=== PATIENT | male | born 1980 | race Caucasian/White ===

== ENCOUNTER 2016-12-03 14:05 | Emergency (ER) | payer SELFPAY ==
[2016-12-03 14:06] VITALS: BP 142/93; PULSE 98; RESP 20; TEMP 97.8; O2SAT 97
[2016-12-03 16:22] VITALS: BP 131/86; PULSE 95; RESP 18; O2SAT 100
[2016-12-03] MEDS ORDERED: LORazepam 2 MG/ML VIAL IV PUSH ONE ×2 (17:00→19:15)
[2016-12-03 17:17] LABS: AUTOMATED NEUTROPHIL # 2.4 TH/MM3 (1.8-7.7); BASOPHIL % 0.7 % (0.0-2.0); HEMATOCRIT 35.3 % (39.0-51.0); LYMPH % 31.5 % (9.0-44.0); LYMPHOCYTE # 1.5 TH/MM3 (1.0-4.8); MEAN CELL VOLUME 97.7 FL (80.0-100.0); MEAN CORPUSCULAR HEMOGLOBIN 33.4 PG (27.0-34.0); MEAN CORPUSCULAR HGB CONC 34.3 % (32.0-36.0); MONO % 17.6 % (0.0-8.0); NEUT % 49.2 % (16.0-70.0); RED BLOOD COUNT 3.61 MIL/MM3 (4.50-5.90); RED CELL DISTRIBUTION WIDTH 13.7 % (11.6-17.2); WHITE BLOOD COUNT 4.8 TH/MM3 (4.0-11.0)
--- NOTE | 2016-12-03 17:17 | PD ---
HPI Chief Complaint: Psychiatric Symptoms Time Seen by Provider: 17:13 Travel History International Travel<30 days: No Contact w/Intl Traveler<30days: No Traveled to known affect area: No History of Present Illness HPI 36-year-old male that presents to the ED for evaluation of anxiety and insomnia. Per patient he has a history of insomnia but takes no medications for it. Per patient he was seen yesterday at [facility] for evaluation of this and had some blood work and was given fluids and some medications as well as a perception for Vistaril which she did not fill. Per patient he slept for for about 4 hours last night and decided to come here because he still feels anxious. On exam patient is very paranoid. Very jumpy and questions everything that I do or the nurse does. He himself denies any history of anxiety or depression in the past. He denies any history of schizophrenia. He denies taking any medications for this. Per patient he did not get the prescription filled. Patient claims that "they are after me". Unclear as to what he means by this. He seems to be again very paranoid and anxious. History is somewhat limited because of this. He denies any drug abuse but does state that he used to drink a lot but cannot really quantify. Per patient he has not had any drinks for about 3 days now. He has no allergies to medication. He denies taking any medications at the bases. No other medical problems. PFSH Past Medical History Medical History: Denies Significant Hx Immunizations Current: Yes Tetanus Vaccination: > 5 Years Influenza Vaccination: No Past Surgical History Surgical History: No Previous Surgery Social History Alcohol Use: Yes Tobacco Use: Yes Substance Use: Yes (marijuana) Allergies-Medications (Allergen,Severity, Reaction): Coded Allergies: No Known Allergies (Unverified , 12/03/16) Review of Systems ROS Limitations: Psychotic General / Constitutional: No: Fever, Chills, Weight Gain, Weight Loss, Other Eyes: No: Diploplia, Blurred Vision, Photophobia, Drainage, Redness, Foreign Body Sensation, Pain, Tearing, Blind Spots, Visual changes, Blindness, Other HENT: No: Headaches, Vertigo, Lightheadedness, Sore Throat, Rhinitis, Rhinorrhea, Congestion, Nosebleed, Neck Stiffness, Neck Pain, Masses, Gingival Bleeding, Dental Difficulties, Ear Discharge, Earache, Other Cardiovascular: No: Chest Pain or Discomfort, Palpitations, Irregular Rhythm, Tachycardia, Diaphoresis, Syncope, Dyspnea on exertion, Varicosities, Edema, Cyanosis, Varicosities, Phlebitis, Claudication, Other Respiratory: No: Cough, Shortness of Breath, Wheezing, Sneezing, Orthopnea, Hemoptysis, Stridor, Night Sweats, Pleuritic Pain, Other Gastrointestinal: No: Nausea, Vomiting, Diarrhea, Abdominal Pain, Hematemesis, Hematochezia, Constipation, Changes in Bowel Habits, Indigestion, Dysphagia, Loss of Appetite, Other Genitourinary: No: Urgency, Frequency, Dysuria, Nocturia, Hematuria, Decreased Urinary Output, Oliguria, Hesitancy, Dribbling, Incontinence, Pelvic Pain, Flank Pain, Dyspareunia, Discharge, Dysmenorrhea, Menorrhagia, Metorrhagia, Vaginal Bleeding, Other Musculoskeletal: No: Myalgias, Arthralgias, Limited ROM, Weakness, Cramping, Edema, Pain, Atrophy, Other Skin: No Rash, No Itching, No Dryness, No Lumps, No Hives, No Change in Pigmentation, No Change in nails, No Alopecia, No Lesions, No Breast Lumps, No Breast Tenderness, No Breast Swelling, No Other Neurologic: No: Weakness, Dizziness, Syncope, Focal Abnormalities, Coordination Problem, Tremor, Ataxia, Headache, Change in Mentation, Slurred Speech, Paresthesia, Incontinence, Seizures, Sensory Disturbance, Other Psychiatric: Positive: Anxiety, Disorder of Thought, No: Depression, Suicidal Ideations, Mood Disorder, Substance Abuse, Homicidal Ideation, Other Endocrine: No: Heat Intolerance, Cold Intolerance, Polyuria, Polydipsia, Other Physical Exam Exam Limitations: Psychotic Narrative GENERAL: SKIN: Warm and dry. HEAD: Atraumatic. Normocephalic. EYES: Pupils equal and round 4 mm reactive to light and accommodation. No scleral icterus. No injection or drainage. ENT: No nasal bleeding or discharge. Mucous membranes pink and moist. NECK: Trachea midline. No JVD. CARDIOVASCULAR: Regular rate and rhythm. No murmurs, S3, S4. RESPIRATORY: No accessory muscle use. Clear to auscultation. Breath sounds equal bilaterally. GASTROINTESTINAL: Abdomen soft, non-tender, nondistended. Hepatic and splenic margins not palpable. MUSCULOSKELETAL: Extremities without clubbing, cyanosis, or edema. No obvious deformities. Full range of motion of the upper and lower extremities bilaterally. 2+ pulses bilaterally. NEUROLOGICAL: Awake and alert. No obvious cranial nerve deficits. Motor grossly within normal limits. Five out of 5 muscle strength in the arms and legs. Normal speech. PSYCHIATRIC: Anxious and paranoid mood and affect; insight and judgment normal. Data Data Last Documented VS Vital Signs Date Time Temp Pulse Resp B/P Pulse Ox O2 Delivery O2 Flow Rate FiO2 12/03/16 16:22 105 12/03/16 16:22 18 131/86 100 Room Air 12/03/16 14:06 97.8 Orders Complete Blood Count With Diff (12/03/16 16:34) Comprehensive Metabolic Panel (12/03/16 16:34) Psych Screen (12/03/16 16:34) Drug Screen, Random Urine (12/03/16 16:34) Alcohol (Ethanol) (12/03/16 16:34) Lorazepam Inj (Ativan Inj) (12/03/16 17:00) Labs Laboratory Tests Test 12/03/16 16:45 White Blood Count 4.8 TH/MM3 Red Blood Count 3.61 MIL/MM3 Hemoglobin 12.1 GM/DL Hematocrit 35.3 % Mean Corpuscular Volume 97.7 FL Mean Corpuscular Hemoglobin 33.4 PG Mean Corpuscular Hemoglobin 34.3 % Concent Red Cell Distribution Width 13.7 % Platelet Count 85 TH/MM3 Mean Platelet Volume 8.8 FL Neutrophils (%) (Auto) 49.2 % Lymphocytes (%) (Auto) 31.5 % Monocytes (%) (Auto) 17.6 % Eosinophils (%) (Auto) 1.0 % Basophils (%) (Auto) 0.7 % Neutrophils # (Auto) 2.4 TH/MM3 Lymphocytes # (Auto) 1.5 TH/MM3 Monocytes # (Auto) 0.8 TH/MM3 Eosinophils # (Auto) 0.0 TH/MM3 Basophils # (Auto) 0.0 TH/MM3 CBC Comment AUTO DIFF Differential Comment AUTO DIFF CONFIRMED Platelet Estimate NORMAL Platelet Morphology Comment NORMAL Sodium Level 140 MEQ/L Potassium Level 3.6 MEQ/L Chloride Level 106 MEQ/L Carbon Dioxide Level 24.0 MEQ/L Anion Gap 10 MEQ/L Blood Urea Nitrogen 8 MG/DL Creatinine 1.04 MG/DL Estimat Glomerular Filtration 81 ML/MIN Rate Random Glucose 154 MG/DL Calcium Level 8.2 MG/DL Total Bilirubin 1.1 MG/DL Aspartate Amino Transf 104 U/L (AST/SGOT) Alanine Aminotransferase 74 U/L (ALT/SGPT) Alkaline Phosphatase 75 U/L Total Protein 6.5 GM/DL Albumin 3.1 GM/DL Ethyl Alcohol Level LESS THAN 3 MG/DL MDM Medical Decision Making Medical Screen Exam Complete: Yes Emergency Medical Condition: Yes Medical Record Reviewed: Yes Interpretation(s) CBC & BMP Diagram 12/03/16 16:45 LFTs WNL Differential Diagnosis Depression versus suicidal ideation versus anxiety versus adjustment disorder versus mood disorder versus bipolar disorder versus schizophrenia versus paranoid disorder versus psychosis versus substance abuse versus alcohol abuse versus alcohol induced psychosis versus homicidality addition versus cutting versus personality disorder Narrative Course 36-year-old male that presents to the ED for evaluation of what appears to be paranoia and anxiety. Patient was properly examined and was found to have signs and symptoms consistent with appears to be psychiatric illness. No obvious sign of acute medical distress. Labs will be drawn. Patient will be medically clear. Okay to be seen by psych. Patient was given Ativan for his anxiety and his paranoia here. Mental health screening was discussed with the patient. Diagnosis Primary Impression: Anxiety Additional Impression: Paranoia Bubba Vidal Dec 03, 2016 17:17
[2016-12-03 17:18] LABS: HEMO FLAGS AUTO DIFF
[2016-12-03 17:28] LABS: ALKALINE PHOSPHATASE 75 U/L (45-117); ALT (GPT) 74 U/L (12-78); ANION GAP 10 MEQ/L (5-15); AST (GOT) 104 U/L (15-37); BLOOD UREA NITROGEN 8 MG/DL (7-18); CHLORIDE 106 MEQ/L (98-107); GLOMERULAR FILTRATION RATE 81 ML/MIN (>89); POTASSIUM 3.6 MEQ/L (3.5-5.1); SODIUM (NA) 140 MEQ/L (136-145); TOTAL BILIRUBIN ADULT 1.1 MG/DL (0.2-1.0)
[2016-12-03 17:57] LABS: PLATELET COUNT 85 TH/MM3 (150-450); PLATELET ESTIMATE SMEAR NORMAL (NORMAL); PLATELET MORPHOLOGY NORMAL (NORMAL); SCAN/DIFF AUTO DIFF CONFIRMED
[2016-12-03 18:28] LABS: AMPHETAMINE, URINE NEG (NEG); BARBITURATES, URINE NEG (NEG); COCAINE, URINE NEG (NEG)
[2016-12-03 18:37] VITALS: BP 127/84; PULSE 80; RESP 18; O2SAT 100
[2016-12-03] MEDS ORDERED: OLANZapine IM 10 MG VIAL IM ONE (21:00)
[2016-12-03 22:21] VITALS: BP 125/68; PULSE 119; RESP 18; O2SAT 97
[2016-12-03] MEDS ORDERED: LORazepam 2 MG TAB PO PRN (23:15)
[2016-12-03] MEDS ORDERED: FLUMAZENIL 0.5 MG/5 ML VIAL IV PUSH PRN (23:15)
[2016-12-03] MEDS ORDERED: LORazepam 2 MG/ML VIAL IV PUSH PRN ×4 (23:15)
--- NOTE | 2016-12-04 00:48 | RADRPT ---
EXAM DATE/TIME: 12/04/2016 00:20 [facility] COMPARISON: No previous studies available for comparison. INDICATIONS : Altered mental status. RADIATION DOSE: 41.41 CTDIvol (mGy) MEDICAL HISTORY : None SURGICAL HISTORY : None. ENCOUNTER: Initial ACUITY: 1 day PAIN SCALE: 0/10 LOCATION: cranial TECHNIQUE: Multiple contiguous axial images were obtained of the head. Using automated exposure control and adj ustment of the mA and/or kV according to patient size, radiation dose was kept as low as reasonably a chievable to obtain optimal diagnostic quality images. FINDINGS: CEREBRUM: The ventricles are normal for age. No evidence of midline shift, mass lesion, hemorrhage or acute in farction. No extra-axial fluid collections are seen. POSTERIOR FOSSA: The cerebellum and brainstem are intact. The 4th ventricle is midline. The cerebellopontine angle i s unremarkable. EXTRACRANIAL: The visualized portion of the orbits is intact. SKULL: The calvaria is intact. No evidence of skull fracture. CONCLUSION: No acute disease. Nate Ye MD on December 04, 2016 at 0:46 Board Certified Radiologist. This report was verified electronically.
--- NOTE | 2016-12-04 03:18 | PD ---
Physical Exam Narrative General: The patient is a well-developed well-nourished male, agitated, confused on examination, pointing at various objects around the room and clearly hallucinating. Head and Neck exam: Head is normocephalic atraumatic. Eyes: Pupils are equal round and reactive to light. Nose: Midline septum with pink mucous membranes Mouth: Dentition unremarkable. Moist mucus membranes. Posterior oropharynx is not erythematous. No tonsillar hypertrophy. Uvula midline. Airway patent. Neck: No palpable lymphadenopathy. No nuchal rigidity. No thyromegaly. Cardiovascular: Sinus tachycardia in the low 100 without murmurs, gallops, or rubs. No pulse deficit to the extremities and simultaneous auscultation and palpation of his radial artery. Lungs: Clear to auscultation bilaterally. No wheezes, rhonchi, or rales. Abdomen: Soft, without tenderness to palpation in all 4 quadrants of the abdomen. No guarding, rebound, or rigidity. Normal bowel sounds are audible. Extremities: No clubbing, cyanosis, or edema. 2+ pulses in all 4 extremities. No calf tenderness on palpation. Neurologic Exam: The patient has difficulty tracking the conversation, repeatedly discussing other things with tangential speech. The patient has pressured speech on examination. The patient repeatedly talks about watching television good movies. The patient has no evidence of facial asymmetry. The patient has strength that is 5 over 5 in all 4 extremities. The patient has been agitated and not sitting in bed in spite of being on the CiWA protocol and sedated with Ativan. The patient will therefore be placed in restraints for his and the staff's safety. Skin Exam: No rash noted. Intact skin that is warm and dry. Data Data Last Documented VS Vital Signs Date Time Temp Pulse Resp B/P Pulse Ox O2 Delivery O2 Flow Rate FiO2 12/03/16 22:21 119 18 125/68 97 Room Air 12/03/16 14:06 97.8 Orders Complete Blood Count With Diff (12/03/16 16:34) Comprehensive Metabolic Panel (12/03/16 16:34) Psych Screen (12/03/16 16:34) Drug Screen, Random Urine (12/03/16 16:34) Alcohol (Ethanol) (12/03/16 16:34) Lorazepam Inj (Ativan Inj) (12/03/16 17:00) Lorazepam Inj (Ativan Inj) (12/03/16 19:15) Olanzapine Inj (Zyprexa Inj) (12/03/16 21:00) Lorazepam (Ativan) (12/03/16 23:15) Lorazepam Inj (Ativan Inj) (12/03/16 23:15) Lorazepam (Ativan) (12/03/16 23:15) Lorazepam Inj (Ativan Inj) (12/03/16 23:15) Lorazepam Inj (Ativan Inj) (12/03/16 23:15) Lorazepam Inj (Ativan Inj) (12/03/16 23:15) Flumazenil Inj (Romazicon Inj) (12/03/16 23:15) Ammonia (12/03/16 23:56) Ct Brain W/O Iv Contrast(Rout) (12/03/16 23:56) Diet Regular Basic (12/04/16 Breakfast) Labs Laboratory Tests Test 12/03/16 12/03/16 12/04/16 16:45 17:45 00:10 White Blood Count 4.8 TH/MM3 Red Blood Count 3.61 MIL/MM3 Hemoglobin 12.1 GM/DL Hematocrit 35.3 % Mean Corpuscular Volume 97.7 FL Mean Corpuscular Hemoglobin 33.4 PG Mean Corpuscular Hemoglobin 34.3 % Concent Red Cell Distribution Width 13.7 % Platelet Count 85 TH/MM3 Mean Platelet Volume 8.8 FL Neutrophils (%) (Auto) 49.2 % Lymphocytes (%) (Auto) 31.5 % Monocytes (%) (Auto) 17.6 % Eosinophils (%) (Auto) 1.0 % Basophils (%) (Auto) 0.7 % Neutrophils # (Auto) 2.4 TH/MM3 Lymphocytes # (Auto) 1.5 TH/MM3 Monocytes # (Auto) 0.8 TH/MM3 Eosinophils # (Auto) 0.0 TH/MM3 Basophils # (Auto) 0.0 TH/MM3 CBC Comment AUTO DIFF Differential Comment AUTO DIFF CONFIRMED Platelet Estimate NORMAL Platelet Morphology Comment NORMAL Sodium Level 140 MEQ/L Potassium Level 3.6 MEQ/L Chloride Level 106 MEQ/L Carbon Dioxide Level 24.0 MEQ/L Anion Gap 10 MEQ/L Blood Urea Nitrogen 8 MG/DL Creatinine 1.04 MG/DL Estimat Glomerular Filtration 81 ML/MIN Rate Random Glucose 154 MG/DL Calcium Level 8.2 MG/DL Total Bilirubin 1.1 MG/DL Aspartate Amino Transf 104 U/L (AST/SGOT) Alanine Aminotransferase 74 U/L (ALT/SGPT) Alkaline Phosphatase 75 U/L Total Protein 6.5 GM/DL Albumin 3.1 GM/DL Ethyl Alcohol Level LESS THAN 3 MG/DL Urine Opiates Screen NEG Urine Barbiturates Screen NEG Urine Amphetamines Screen NEG Urine Benzodiazepines Screen NEG Urine Cocaine Screen NEG Urine Cannabinoids Screen NEG Ammonia 40 MCMOL/L [facility] Medical Record Reviewed: Yes Supervised Visit with SABI: No Interpretation(s) Laboratory Tests Test 12/03/16 12/03/16 12/04/16 16:45 17:45 00:10 White Blood Count 4.8 TH/MM3 Red Blood Count 3.61 MIL/MM3 Hemoglobin 12.1 GM/DL Hematocrit 35.3 % Mean Corpuscular Volume 97.7 FL Mean Corpuscular Hemoglobin 33.4 PG Mean Corpuscular Hemoglobin 34.3 % Concent Red Cell Distribution Width 13.7 % Platelet Count 85 TH/MM3 Mean Platelet Volume 8.8 FL Neutrophils (%) (Auto) 49.2 % Lymphocytes (%) (Auto) 31.5 % Monocytes (%) (Auto) 17.6 % Eosinophils (%) (Auto) 1.0 % Basophils (%) (Auto) 0.7 % Neutrophils # (Auto) 2.4 TH/MM3 Lymphocytes # (Auto) 1.5 TH/MM3 Monocytes # (Auto) 0.8 TH/MM3 Eosinophils # (Auto) 0.0 TH/MM3 Basophils # (Auto) 0.0 TH/MM3 CBC Comment AUTO DIFF Differential Comment AUTO DIFF CONFIRMED Platelet Estimate NORMAL Platelet Morphology Comment NORMAL Sodium Level 140 MEQ/L Potassium Level 3.6 MEQ/L Chloride Level 106 MEQ/L Carbon Dioxide Level 24.0 MEQ/L Anion Gap 10 MEQ/L Blood Urea Nitrogen 8 MG/DL Creatinine 1.04 MG/DL Estimat Glomerular Filtration 81 ML/MIN Rate Random Glucose 154 MG/DL Calcium Level 8.2 MG/DL Total Bilirubin 1.1 MG/DL Aspartate Amino Transf 104 U/L (AST/SGOT) Alanine Aminotransferase 74 U/L (ALT/SGPT) Alkaline Phosphatase 75 U/L Total Protein 6.5 GM/DL Albumin 3.1 GM/DL Ethyl Alcohol Level LESS THAN 3 MG/DL Urine Opiates Screen NEG Urine Barbiturates Screen NEG Urine Amphetamines Screen NEG Urine Benzodiazepines Screen NEG Urine Cocaine Screen NEG Urine Cannabinoids Screen NEG Ammonia 40 MCMOL/L Last Impressions Head CT 12/03/16 [id number] Signed Impressions: Service Date/Time: Sunday, December 04, 2016 00:20 - CONCLUSION: No acute disease. Nate Ye MD Differential Diagnosis Acute psychosis related to alcohol withdrawal, versus substance intoxication, versus psychiatric disorder, versus electrolyte abnormality, versus intracranial abnormality Narrative Course During the course of the patients emergency department visit, the patients history, examination, and differential diagnosis were reviewed with the patient. The patient was initially evaluated by Dr. Nguyen medically cleared. The patient was noted to have psychosis with paranoid delusions. A psychiatric evaluation has been done. The patients laboratory studies were reviewed and remarkable for a white count of 4.8, hemoglobin 12.1, platelets 85 monocytosis at 17.6., CMP is remarkable for glucose 154, AST 104, ammonia level is 40, urine drug screen is negative, alcohol level is less than 3 CT scan of the brain shows no acute abnormality. I suspect that the patient's symptoms are related to an alcohol withdrawal syndrome as according to the patient's mother the patient drinks alcohol on a daily basis.. The patient will be continued on CIWA and have a Evaluation by the psychiatrist in the morning to evaluate for other underlying psychiatric issues. Diagnosis Primary Impression: Anxiety Additional Impression: Paranoia Scripts No Active Prescriptions or Reported Meds Eleanor Bar MD Dec 04, 2016 03:18
[2016-12-04 06:20] VITALS: BP 155/96; PULSE 95; RESP 18; O2SAT 95
[2016-12-04 15:52] VITALS: BP 137/90; PULSE 103; RESP 22; O2SAT 100
[2016-12-04] MEDS: LORazepam 1 MG TAB PO PRN (15:58)
[2016-12-04 17:52] VITALS: BP 132/85; PULSE 99; RESP 20; O2SAT 100
[2016-12-04 22:10] VITALS: BP 132/73; PULSE 85; RESP 18; O2SAT 98
[2016-12-05 02:08] VITALS: BP 122/74; PULSE 86; RESP 17; O2SAT 95
[2016-12-05 06:21] VITALS: BP 147/86; PULSE 107; RESP 18; O2SAT 99
[2016-12-05 06:22] VITALS: BP 147/86; PULSE 107; RESP 18; O2SAT 99
[2016-12-05] MEDS ORDERED: LORA-474 PO (09:41)
[2016-12-05] MEDS: LORazepam 1 MG TAB PO PRN (09:41)
[2016-12-05 10:27] VITALS: BP 126/80; PULSE 108; RESP 18; O2SAT 98
[2016-12-05 10:28] VITALS: BP 126/80; PULSE 108; RESP 18; O2SAT 98
--- NOTE | 2016-12-05 10:50 | PD ---
History of Present Illness Chief Complaint: Psychiatric Symptoms Time Seen by Provider: 10:00 Travel History International Travel<30 Days: No Contact w/Intl Traveler<30days: No Known affected area: No Legal Status Legal Status: Voluntary History of Present Illness: This is a 36-year-old male who was reportedly brought in by his mother due to hallucinations, distress, lack of sleep and possible dehydration. According to the emergency department note, the patient was clearly hallucinating. Upon examination, the patient is currently cognitively intact with no evidence of hallucinations or other psychotic symptoms. He denies any suicidal or homicidal ideation. He apparently has been experiencing some stress in his life as his ex- is planning to move to [place] with his children. He states this has been worked out with a rail car painter/sandblaster and he is accepting of the situation. He continues to have his mother as a support system. He is currently employed in the [employer] business and would like to return to work today. He verbally contracts for safety and will be willing to accept counseling on an outpatient basis. PFSH Past Medical History Medical History: Denies Significant Hx Immunizations Current: Yes Tetanus Vaccination: > 5 Years Influenza Vaccination: No Past Surgical History Surgical History: No Previous Surgery Psychiatric History Psychiatric History Hx Psychiatric Treatment: DENIES History of Inpatient Treatment: No Guns or firearms in home: No Social History Hx Alcohol Use: Yes Hx Tobacco Use: Yes Hx Substance Use: Yes (marijuana) Substance Use Type: Marijuana Hx of Substance Use Treatment: No Allergies-Medications (Allergen,Severity, Reaction): Coded Allergies: No Known Allergies (Unverified , 12/03/16) Reported Meds & Prescriptions Reported Meds & Active Scripts Active Ativan (Lorazepam) 1 Mg Tab 1 Mg PO Q6H PRN Review of Systems ROS Limitations: Clinical Condition Except as stated in HPI: all other systems reviewed are Neg Exam Alert: Yes [place]: Person, Place, Date, Situation Mood: Anxious, Calm Affect: Restricted Speech: Logical Eye Contact: Normal Memory Intact: Immediate, Recent, Remote Hallucinations: Other Delusions: No Insight/Judgement Mildly impaired but adequate at the present time. MDM Medical Decision Making Medical Record Reviewed: Yes Assessment/Plan Patient is being released and will return to work. He will also continue to seek support from his mother. He is encouraged to seek follow up counseling. Orders Diet Regular Basic (12/04/16 Dinner) Diet Regular Basic (12/05/16 Breakfast) Diet Regular Basic (12/05/16 Lunch) Results Vital Signs Date Time Temp Pulse Resp B/P Pulse Ox O2 Delivery O2 Flow Rate FiO2 12/05/16 10:28 108 18 126/80 98 Room Air 12/05/16 10:27 108 18 126/80 98 Room Air 12/05/16 06:22 107 18 147/86 99 Room Air 12/05/16 02:08 86 17 122/74 95 Room Air 12/04/16 22:10 85 18 132/73 98 Room Air 12/04/16 17:52 99 20 132/85 100 Room Air 12/04/16 15:52 103 22 137/90 100 Room Air Diagnosis Primary Impression: Adjustment disorder with mixed disturbance of emotions and conduct Departure Forms: Tests/Procedures Patient Instructions: General Instructions, Lorazepam (By mouth), Medical Clearance for Psychiatric Care (ED), Anxiety (ED) Additional Instructions: DX: Anxiety, Paranoia Please return to ED if symptoms worsen. Prescriptions Lorazepam (Ativan)1 Mg Tab1 Mg PO Q6H PRN (ANXIETY AND/OR AGITATION) #15 TAB Ref 0 Prov:Donta Mcmullen MD 12/05/16 Disposition: 01 DISCHARGE HOME Condition: Stable Donta Mcmullen MD Dec 05, 2016 10:50
== END 2016-12-05 11:33 | disposition home or self-care (01) ==
LOC: NEPC 14:05 → NEPJ 12-05 11:33
DX: F43.25 Adjustment disorder with mixed disturbance of emotions and conduct (principal); F41.9 Anxiety disorder, unspecified; F22 Delusional disorders; Z72.0 Tobacco use
CPT/HCPCS: 70450; 80053; 80307; 80320; 82140; 85025; 96372; 96374; 96376; 99285; J2060